=== PATIENT | male | born 1980 | race Caucasian/White ===

== ENCOUNTER 2023-05-16 17:58 | Emergency (ER) | payer OTHER, SELFPAY ==
[2023-05-16 18:42] VITALS: BP 136/79; PULSE 62; RESP 16; TEMP 36.3; O2SAT 100
--- NOTE | 2023-05-16 19:09 | ED.GENADULT ---
HPI - General Adult General Chief complaint: Ear Stated complaint: bilateral ear discomfort,nasal drainage Time Seen by Provider: 05/16/23 19:10 Source: patient, RN notes reviewed and old records reviewed Mode of arrival: ambulatory Limitations: no limitations History of Present Illness HPI narrative: 42-year-old male presents to the [facility] with 4 days of nasal drainage and bilateral ear clogging. Take some ibuprofen for headache this morning. No other treatment prior arrival Onset (ago): day(s) (4) Related Data Home Medications Medication Instructions Recorded Confirmed omeprazole magnesium 20 mg 20 mg PO DAILY 04/03/23 05/16/23 tablet,delayed release (Prilosec OTC) Allergies Allergy/AdvReac Type Severity Reaction Status Date / Time Penicillins AdvReac Mild Hives Verified 05/16/23 19:03 Review of Systems Review of Systems: All systems reviewed & are unremarkable except as noted in HPI and below Constitutional: Constitutional: Reports no additional constitutional complaints Eyes: Eyes: Reports no additional eye complaints ENT: Reports as per HPI, Reports otalgia and Reports nasal discharge Cardiovascular: Cardiovascular: Reports no additional cardiovascular complaints, Denies chest pain and Denies dyspnea Respiratory: Respiratory: Reports no additional respiratory complaints, Denies chest congestion, Denies cough and Denies dyspnea Gastrointestinal: Gastrointestinal: Reports no additional gastrointestinal complaints, Denies abdominal pain, Denies nausea and Denies vomiting Musculoskeletal: Musculoskeletal: Reports no additional musculoskeletal complaints Integumentary/Breasts: Skin/Breast: Reports system reviewed and no additional complaints, except as docu Neurologic: Reports system reviewed and no additional complaints, except as documented Psychiatric: Psychiatric: Reports no additional psychiatric complaints Allergic/Immunologic: Allergic/Immunologic: Reports no additional allergic/immunologic complaints [facility] Past Medical History Medical History Allergies Anxiety Hypertension Surgical History Surgical History H/O skin graft (~2002) right upper arm Family History Family History Father Diabetes mellitus Cerebrovascular accident Mother Depression Cerebrovascular accident Grandparent Diabetes mellitus Depression Heart disease Hypertension Grandparent Diabetes mellitus Heart disease Depression Hypertension Social History Social History Smoking status: Never smoker Substance use: never Substance use type: does not use Living arrangements: with family Occupation/Education: occupation 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 There is no relevant family history pertinent to the patient complaint. Exam Const: General: cooperative, healthy appearing, comfortable, no acute distress, well developed, alert and well nourished Nutritional Appearance: well nourished and obese Orientation/consciousness: patient oriented x3 Limitations: no limitations HENMT: Head: normal to inspection Ears: hearing grossly normal bilaterally, external ears normal, EAC's normal, mastoids normal, no periauricular adenopathy and TM abnormal bulging on the right and wth effusion serous bilateral; not erythematous Face/Nose/Sinus: Normal external nose present, Normal nares present, Normal nasal mucous membranes and turbinates present, Nasal discharge present clear bilateral, normal facial exam and face symmetric Face and si
== END 2023-05-16 19:19 | disposition home or self-care (01) ==
PROVIDERS: Emergency Provider Nurse Practitioner; PCP Family Medicine
DX: H65.03 Acute serous otitis media, bilateral (principal); J34.89 Other specified disorders of nose and nasal sinuses; I10 Essential (primary) hypertension
CPT/HCPCS: 99213; G0463

== ENCOUNTER 2024-05-22 18:48 | Emergency (ER) | payer OTHER, SELFPAY ==
--- NOTE | ~2024-05-22 | XR_ITS ---
CHEST RADIOGRAPH, PA AND LATERAL CLINICAL HISTORY: cough 2.5 weeks nonsmoker hx pneumonia . COMPARISON: None available TECHNIQUE: PA and lateral views of the chest. FINDINGS The cardiomediastinal silhouette is unremarkable. The lungs are clear. Visualized osseous structures and soft tissues are unremarkable. IMPRESSION: No focal infiltrate or effusion. Reviewed, dictated and finalized at location [facility]
[2024-05-22 18:57] VITALS: BP 139/62; PULSE 68; RESP 16; TEMP 36.7; O2SAT 98
--- NOTE | 2024-05-22 19:46 | ED.GENADULT ---
HPI - General Adult General Chief complaint: Upper Respiratory Infection Stated complaint: cough Source: patient Mode of arrival: ambulatory Limitations: no limitations History of Present Illness HPI narrative: Patient presents for evaluation of a cough that he has experienced since 2023. For the most part cough has been nonproductive. He develops shortness of breath during coughing episodes. He denies any fever, chills, nausea, vomiting, diarrhea. He does not smoke. He has tried mucinex DM, DayQuil and NyQuil for his symptoms. He has a CPAP but has not been wearing it because he coughs so frequency it is challenging to remove the mask each time. He recently replaced the tubing on the device. He is currently on lisinopril but states that is not a new medication. His kids are now developing sick symptoms. Related Data Allergies Allergy/AdvReac Type Severity Reaction Status Date / Time Penicillins Allergy Mild Hives Verified 05/22/24 18:58 Review of Systems Review of Systems: CONSTITUTIONAL: Denies fever, chills, or sweats. EYES: Denies visual changes, redness, or discharge. ENT: Denies rhinorrhea, congestion, sore throat, or otalgia. CARDIOVASCULAR: Denies chest pain, palpitations, or edema. RESPIRATORY: Reports cough and SOB only during coughing episodes. GASTROINTESTINAL: Denies abdominal pain, nausea, vomiting, or diarrhea. GENITOURINARY: Denies dysuria or hematuria. SKIN: Denies rash or itching. MUSCULOSKELETAL: Denies back pain, joint pain, or myalgia. NEUROLOGIC: Denies headache, numbness, dizziness, or weakness. PSYCHIATRIC: Denies anxiety or depression. [facility] Past Medical History Medical History Hypertension Anxiety Allergies Surgical History Surgical History H/O skin graft (~2002) right upper arm Family History Family History Father Diabetes mellitus Cerebrovascular accident Mother Depression Cerebrovascular accident Grandparent Diabetes mellitus Depression Heart disease Hypertension Grandparent Diabetes mellitus Heart disease Depression Hypertension Social History Social History Social History: 12/25/23 Pt declined SDOH Smoking status: Never smoker Substance use: never Substance use type: does not use Living arrangements: with family Occupation/Education: occupation 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 HEAD: Normocephalic, atraumatic. EYES: PERRLA and EOMI. ENT: Nares clear, no rhinorrhea or epistaxis. Mucous membranes moist. Oropharynx without tonsillar hypertrophy exudate or other lesions. Bilateral TMs pearly hawkins nonbulging NECK: Supple. No adenopathy or masses. No carotid bruits or JVD CHEST: Clear to auscultation. No respiratory distress. No wheezes rales or rhonchi HEART: Regular rate and rhythm. No murmur heard. Normal peripheral pulses. ABDOMEN: Soft, nontender, nondistended, normal active bowel sounds. EXTREMITIES: Normal range of motion. No edema. SKIN: Warm, dry, no rash. NEURO: No focal deficits. Alert and oriented x3. PSYCH: Normal mood and affect. Course Course Emergency Course: This is a 43-year-old male who presented for evaluation of cough. Flu and COVID were not obtained due to duration of time in which he has been symptomatic. CXR normal. We discussed that his symptoms could be related to alice inhibitor despite not recently starting the medication. I recommended he speak with his primary to determine whether he should have a trial of changing to another antihypertensive. Also advised he speak with them about whether he would benefit from additional testing such as alice inhibitor. He should follow up with PCP and go to the ER for worsening symptoms. Pt in agreement with plan of care. Level of Care: Express Care Visit Vital Signs Vital signs: Vital Signs Temperature 36.7 C 05/22/24 18:57 Pulse Rate 68 05/22/24 18:57 Respiratory Rate 16 05/22/24 18:57 Blood Pressure 139/62 05/22/24 18:57 Pulse Oximetry 98 05/22/24 18:57 Oxygen Delivery Room Air 05/22/24 18:57 Temperature 36.7 C 05/22/24 18:57 Pulse Rate 68 05/22/24 18:57 Respiratory Rate 16 05/22/24 18:57 Blood Pressure 139/62 05/22/24 18:57 Pulse Oximetry 98 05/22/24 18:57 Oxygen Delivery Room Air 05/22/24 18:57 Medical Decision Making Vital Signs Vital Signs: Vital Signs Temperature 36.7 C 05/22/24 18:57 Pulse Rate 68 05/22/24 18:57 Respiratory Rate 16 05/22/24 18:57 Blood Pressure 139/62 05/22/24 18:57 Pulse Oximetry 98 05/22/24 18:57 Oxygen Delivery Room Air 05/22/24 18:57 Temperature 36.7 C 05/22/24 18:57 Pulse Rate 68 05/22/24 18:57 Respiratory Rate 16 05/22/24 18:57 Blood Pressure 139/62 05/22/24 18:57 Pulse Oximetry 98 05/22/24 18:57 Oxygen Delivery Room Air 05/22/24 18:57 Imaging Data Radiologist's impression: CHEST RADIOGRAPH, PA AND LATERAL CLINICAL HISTORY: cough 2.5 weeks nonsmoker hx pneumonia . COMPARISON: None available TECHNIQUE: PA and lateral views of the chest. FINDINGS The cardiomediastinal silhouette is unremarkable. The lungs are clear. Visualized osseous structures and soft tissues are unremarkable. IMPRESSION: No focal infiltrate or effusion. Discharge Plan Discharge Clinical Impression: Cough Patient Disposition: Home, Self-Care Condition: Stable Instructions: Antibiotic Form, Acute Cough (ED) Additional Instructions: Please speak with your primary provider to determine whether you should switch from lisinopril to another blood pressure medication Please speak with your primary provider to determine whether you need additional testing such as CT chest Sleeping with humidified air should help Tea and honey may help alleviate your symptoms Patient Language: Turkish Prescriptions: New benzonatate 200 mg capsule 200 mg PO TID PRN (Reason: cough) Qty: 30 0RF No Action omeprazole 20 mg capsule,delayed release(DR/EC) 20 mg PO DAILY Qty: 90 3RF lisinopril 10 mg tablet 10 mg PO DAILY Qty: 90 1RF Follow-up/Referrals: Aranza Anthony APN-C [Primary Care Provider] - Time of Disposition: 19:43
== END 2024-05-22 19:48 | disposition home or self-care (01) ==
PROVIDERS: Emergency Provider Nurse Practitioner; PCP Nurse Practitioner Family
DX: R05.9 Cough, unspecified (principal); I10 Essential (primary) hypertension
CPT/HCPCS: 71046; 99213; G0463

== ENCOUNTER 2024-07-16 15:46 | Emergency (ER) | payer OTHER, SELFPAY ==
[2024-07-16 15:55] VITALS: BP 137/71; PULSE 63; RESP 18; TEMP 35.9; O2SAT 100
--- NOTE | 2024-07-16 16:01 | ED.WOUNDLAC ---
HPI - Wound/Laceration General Chief Complaint: Wound/Laceration Stated Complaint: LT Pinky Finger injury Time Seen by Provider: 07/16/24 16:01 Source: patient Mode of arrival: ambulatory Limitations: no limitations History of Present Illness HPI narrative: 43-year-old male presented for complaint of decreased sensation to the left little finger following a laceration 2 days ago. Patient states he cut the finger with a pocket knife, he cleansed the site with water and then applied liquid Band-Aid. He states from the site of the laceration to the tip of the finger feels numb and tingling, however he endorses sensation in the finger when touched. Denies decreased range of motion, weakness, redness, swelling, streaking or fever. Related Data Allergies Allergy/AdvReac Type Severity Reaction Status Date / Time Penicillins Allergy Mild Hives Verified 07/16/24 16:01 Review of Systems Review of Systems: CONSTITUTIONAL: Denies body aches, fever, chills, or sweats. EYES: Denies visual changes, redness, or discharge. ENT: Denies rhinorrhea, congestion CARDIOVASCULAR: Denies chest pain, palpitations, or edema. RESPIRATORY: Denies cough or dyspnea. GASTROINTESTINAL: Denies abdominal pain, nausea, vomiting, or diarrhea. SKIN: MUSCULOSKELETAL: Denies back pain, joint pain, or myalgia. NEUROLOGIC: Denies headache, numbness, tingling, or weakness. [facility] Past Medical History Medical History Hypertension Anxiety Allergies Surgical History Surgical History H/O skin graft (~2002) right upper arm Family History Family History Father Diabetes mellitus Cerebrovascular accident Mother Depression Cerebrovascular accident Grandparent Diabetes mellitus Depression Heart disease Hypertension Grandparent Diabetes mellitus Heart disease Depression Hypertension Social History Social History Social History: 05/23/24 very confident with medical forms 06/19/24 Patient declined to answer SDOH Smoking status: Never smoker Substance use: never Substance use type: does not use Do You Feel Safe in your Home?: Yes Lack of Transportation: No Lack of Food: Never True Current Housing: I Have Housing Concerned About Future Housing: No Difficulty Paying Gas/Electric Bills: No Difficulty Paying for Meds: No Currently Unemployed: No Education: High School Diploma/GED Difficulty w/ Childcare or Family Care: No Living arrangements: with family Occupation/Education: occupation 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 Please see nursing chart for further information. There is no relevant family history pertinent to the presenting complaint Exam Narrative: GENERAL: Well-appearing ENT: Mucous membranes moist. Oropharynx without edema, erythema or lesions. CHEST: Clear to auscultation. HEART: Regular rate and rhythm. SKIN: Warm, dry. Left 5th digit PIP palmar/ulnar aspect with 0.5cm linear laceration, and clear material c/w liquid bandaid as reported. CMS intact. Endorses sensation with 2 point discrimination, says it feels diminished. Cap refill <3 seconds. Minimal swelling. No erythema, fluctuance, streaking or tenderness. NEURO: Alert and oriented x3. Course Course Emergency Course: Patient is aware of diagnosis, understands and agrees to treatment plan. Anticipatory guidance given. Patient agrees to follow-up as directed and is aware of reasons to seek care at the emergency department. Portions of this record may have been created with voice recognition software Level of Care: Express Care Visit Vital Signs Vital signs: Vital Signs Temperature 96.7 F L 07/16/24 15:55 Pulse Rate 63 07/16/24 15:55 Respiratory Rate 18 07/16/24 15:55 Blood Pressure 137/71 07/16/24 15:55 Pulse Oximetry 100 07/16/24 15:55 Oxygen Delivery Room Air 07/16/24 15:55 Temperature 96.7 F L 07/16/24 15:55 Pulse Rate 63 07/16/24 15:55 Respiratory Rate 18 07/16/24 15:55 Blood Pressure 137/71 07/16/24 15:55 Pulse Oximetry 100 07/16/24 15:55 Oxygen Delivery Room Air 07/16/24 15:55 Reviewed MDM - Wound/Laceration MDM Narrative Medical decision making narrative: Discussed physical exam findings, we will send antibiotic. Patient will site and follow-up with hand specialist if indicated.. Advised supportive measures and signs/symptoms to go to the ER. Pt is appropriate for outpt treatment and f/u. Differential Diagnosis Differential diagnosis: Likely laceration, abrasion and avulsion of skin Discharge Plan Discharge Clinical Impression: Laceration Patient Disposition: Home, Self-Care Condition: Stable Instructions: Antibiotic Form, Finger Laceration (ED) Additional Instructions: Keep the area clean and dry - cleanse with warm water and mild soap and allow to fully dry. Take the antibiotic as directed Watch for worsening symptoms including pain, redness, swelling, streaking, pus/drainage, fever. Go to the ER with any of these symptoms or concerns. Follow up with primary care provider in 1 week as needed. Patient Language: Czech Prescriptions: New doxycycline hyclate 100 mg tablet 100 mg PO BID 5 Days Qty: 10 0RF No Action albuterol sulfate [Ventolin HFA] 90 mcg/actuation HFA aerosol inhaler 1 - 2 inh inhalation Q4H PRN (Reason: shortness of breath or wheezing) Qty: 8.5 0RF losartan 25 mg tablet 25 mg PO DAILY Qty: 90 0RF omeprazole 20 mg capsule,delayed release(DR/EC) 20 mg PO DAILY Qty: 90 3RF Follow-up/Referrals: Wander Lopez MD [Physician] - Aranza Anthony APN-C [Primary Care Provider] - Time of Disposition: 16:11
== END 2024-07-16 16:39 | disposition home or self-care (01) ==
PROVIDERS: Emergency Provider Nurse Practitioner Family; PCP Nurse Practitioner Family
DX: S61.217A Laceration without foreign body of left little finger without damage to nail, initial encounter (principal); W26.0XXA Contact with knife, initial encounter; I10 Essential (primary) hypertension; F41.9 Anxiety disorder, unspecified
CPT/HCPCS: 99213; G0463